=== PATIENT | female | born 1955 | race Two or more races ===

== ENCOUNTER 2024-04-13 20:09 | Emergency (ER) | payer OTHER, MEDICAID ==
[~2024-04-13] VITALS: Ht 160 cm; Wt 68.0 kg
[2024-04-13 23:57] VITALS: BP 134/70; TEMP 98.1; O2SAT 98
== END 2024-04-13 23:58 | disposition home or self-care (01) ==
LOC: ER 20:16
DX: S09.8XXA Other specified injuries of head, initial encounter (principal); I10 Essential (primary) hypertension; E16.2 Hypoglycemia, unspecified; Z91.040 Latex allergy status; Z88.1 Allergy status to other antibiotic agents; W18.39XA Other fall on same level, initial encounter; Y93.89 Activity, other specified; Y92.89 Other specified places as the place of occurrence of the external cause; Y99.8 Other external cause status
CPT/HCPCS: 70450-TC